=== PATIENT | male | born 1955 ===

== ENCOUNTER 2018-07-06 10:02 | Emergency (ER) | payer BC, OTHER ==
[~2018-07-06] VITALS: Ht 177.8 cm; Wt 83.5 kg
--- NOTE | 2018-07-06 10:45 | ED General ---
General Chief Complaint: Dizziness/Syncope Stated Complaint: DIZZINESS Source of Information: Patient, EMS, Family Exam Limitations: No Limitations History of Present Illness Date Seen by Provider: July 06, 2018 Time Seen by Provider: 10:40 Initial Comments 63-year-old male presents with a five-day history of severe dizziness made worse with body positioning. Patient was evaluated in urgent care in the [facility] and placed on meclizine which she has improved his symptoms slightly. Significant past medical history includes a previous myocardial infarction and placement of stents. The patient has no associated headache, visual change, stiff neck, fever or chill, lateralizing or localizing neurologic complaints, chest pain, shortness of breath, or palpitations. The patient's symptoms were much worse this morning precipitating EMS presentation. In addition to the dizziness the patient was suffering from diaphoresis which has self resolved. The patient received Zofran from the paramedics. Upon presentation to emergency department the patient was complaining of his dizziness but had no other complaints. Allergies and Home Medications Allergies Coded Allergies: No Known Drug Allergies (Unverified , 07/06/18) Patient Home Medication List Home Medication List Reviewed: Yes Review of Systems Review of Systems Constitutional: see HPI; No chills; dizziness EENTM: No hearing loss, No ear pain, No vision loss Respiratory: No cough, No short of breath Cardiovascular: No chest pain; Hx of Intervention; No palpitations Gastrointestinal: No abdominal pain; nausea; No vomiting Genitourinary: No dysuria, No frequency Musculoskeletal: No back pain Skin: see HPI, other (diaphoresis) Psychiatric/Neurological: No Symptoms Reported Hematologic/Lymphatic: No Symptoms Reported Immunological/Allergic: no symptoms reported Past Bdrlakg-Ftwypo-Dgnahg Hx Past Med/Social Hx: Reviewed Nursing Past Med/Soc Hx Physical Exam Vital Signs Vital Signs - First Documented 07/06/18 10:02 Temp 96.9 Pulse 70 Resp 16 B/P (MAP) 158/92 (114) Pulse Ox 95 O2 Delivery Room Air Capillary Refill : Height, Weight, BMI Height: '" Weight: lbs. oz. kg; BMI Method: General Appearance: No Apparent Distress, WD/WN Eyes: Bilateral Eye Other (I do not find a significant nystagmus on examination of the patient.) HEENT: PERRL/EOMI, Normal ENT Inspection, Pharynx Normal Neck: Full Range of Motion, Normal Inspection, Non Tender Respiratory: Chest Non Tender, Lungs Clear, Normal Breath Sounds, No Accessory Muscle Use Cardiovascular: Regular Rate, Rhythm, No Edema, No Gallop Gastrointestinal: Normal Bowel Sounds, No Organomegaly, No Pulsatile Mass Back: Normal Inspection Extremity: Normal Capillary Refill, Normal Inspection, Normal Range of Motion Neurologic/Psychiatric: Alert, Oriented x3, No Motor/Sensory Deficits, Normal Mood/Affect, manager of creative services II-XII Norm as Tested Skin: Normal Color, Warm/Dry; No Diaphoresis Progress/Results/Core Measures Suspected Sepsis SIRS Temperature: Pulse: Respiratory Rate: Laboratory Tests 07/06/18 10:09: White Blood Count 7.2 Blood Pressure / Mean: Laboratory Tests 07/06/18 10:09: Creatinine 1.04, Platelet Count 276, Total Bilirubin 0.9 Results/Orders Lab Results Laboratory Tests Test 07/06/18 10:09 Range/Units White Blood Count 7.2 4.3-11.0 10^3/uL Red Blood Count 7.45 H 4.35-5.85 10^6/uL Hemoglobin 14.6 13.3-17.7 G/DL Hematocrit 48 40-54 % Mean Corpuscular Volume 64 L 80-99 FL Mean Corpuscular Hemoglobin 20 L 25-34 PG Mean Corpuscular Hemoglobin Concent 30 L 32-36 G/DL Red Cell Distribution Width 19.4 H 10.0-14.5 % Platelet Count 276 130-400 10^3/uL Mean Platelet Volume 10.6 H 7.4-10.4 FL Neutrophils (%) (Auto) 53 42-75 % Lymphocytes (%) (Auto) 34 12-44 % Monocytes (%) (Auto) 9 0-12 % Eosinophils (%) (Auto) 4 0-10 % Basophils (%) (Auto) 1 0-10 % Neutrophils # (Auto) 3.8 1.8-7.8 X 10^3 Lymphocytes # (Auto) 2.4 1.0-4.0 X 10^3 Monocytes # (Auto) 0.6 0.0-1.0 X 10^3 Eosinophils # (Auto) 0.3 0.0-0.3 10^3/uL Basophils # (Auto) 0.1 0.0-0.1 10^3/uL Sodium Level 139 135-145 MMOL/L Potassium Level 4.3 3.6-5.0 MMOL/L Chloride Level 103 98-107 MMOL/L Carbon Dioxide Level 19 L 21-32 MMOL/L Anion Gap 17 H 5-14 MMOL/L Blood Urea Nitrogen 11 7-18 MG/DL Creatinine 1.04 0.60-1.30 MG/DL Estimat Glomerular Filtration Rate > 60 BUN/Creatinine Ratio 11 Glucose Level 114 H 70-105 MG/DL Calcium Level 9.0 8.5-10.1 MG/DL Corrected Calcium 8.9 8.5-10.1 MG/DL Total Bilirubin 0.9 0.1-1.0 MG/DL Aspartate Amino Transf (AST/SGOT) 22 5-34 U/L Alanine Aminotransferase (ALT/SGPT) 21 0-55 U/L Alkaline Phosphatase 56 40-136 U/L Troponin T 8 <=15 NG/L Total Protein 7.1 6.4-8.2 GM/DL Albumin 4.1 3.2-4.5 GM/DL My Orders Orders - MARY DEE MD Ct Head Wo (07/06/18 10:37) Ekg Tracing (07/06/18 10:37) Cbc With Automated Diff (07/06/18 10:37) Comprehensive Metabolic Panel (07/06/18 10:37) Troponin T (07/06/18 10:37) Chest 1 View Ap/Pa Only (07/06/18 10:37) Ua Culture If Indicated (07/06/18 10:37) Ondansetron Injection (Zofran Injectio (07/06/18 11:24) Vital Signs/I&O 07/06/18 10:02 Temp 96.9 Pulse 70 Resp 16 B/P (MAP) 158/92 (114) Pulse Ox 95 O2 Delivery Room Air Capillary Refill : Progress Note : Time: 11:21 Progress Note The patient's EKG demonstrated questionable old inferior infarct with Q waves in III and F. Patient was in a sinus rhythm with borderline first-degree heart block. No acute current of injury was noted. CT of the head was unremarkable. Chest x-ray was similarly benign. Physical therapy was kind enough to present to perform an Catherine maneuver for the patient. Prior to the maneuver the patient demonstrated on reexamination a nystagmus to the left. Therefore the Catherine maneuver was performed for the left ear. The patient's dizziness was dramatically improved following the Catherine maneuver. 11:27 I gave the patient a glass of water and in the process of moving his head his dizziness recurred and he was very nauseated and vomited. 4 mg of IV Zofran was given. In addition I gave the patient 5 mg of Valium for symptomatic relief of his dizziness. Departure Impression Primary Impression: BPPV (benign paroxysmal positional vertigo) Qualified Codes: H81.12 - Benign paroxysmal vertigo, left ear Disposition: 01 HOME, SELF-CARE Condition: Improved Departure-Patient Inst. Decision time for Depature: 11:32 Referrals: LAWRENCE RM MD (PCP/Family) Primary Care Physician Patient Instructions: Vertigo (a Type of Dizziness) Add. Discharge Instructions: Perform Catherine maneuvers at home daily. Close follow-up with Dr. Arcos. Valium and Zofran as needed for dizziness and nausea. Return if any problems or questions. Call me with any concerns (Mary Dee- [phone]). All discharge instructions reviewed with patient and/or family. Voiced understanding. Scripts Diazepam (Valium) 5 Mg Tablet 5 MG PO Q6H PRN for DIZZINESS, #20 TAB Prov: MAYR DEE MD 07/06/18 Ondansetron (Ondansetron Odt) 4 Mg Tab.rapdis 4 MG PO Q4H PRN for NAUSEA/VOMITING, #20 TAB Prov: MARY DEE MD 07/06/18 MARY DEE MD July 06, 2018 10:45
[2018-07-06 10:47] LABS: WHITE BLOOD COUNT 7.2 10^3/uL (4.3-11.0)
[2018-07-06 10:48] LABS: BASOPHILS % (AUTO) 1 % (0-10); EOSINOPHILS % (AUTO) 4 % (0-10); HEMATOCRIT 48 % (40-54); HEMOGLOBIN 14.6 G/DL (13.3-17.7); LYMPHOCYTES % (AUTO) 34 % (12-44); MEAN CORPUSCULAR HEMOGLOBIN 20 PG (25-34); MEAN CORPUSCULAR HGB CONC 30 G/DL (32-36); MEAN CORPUSCULAR VOLUME 64 FL (80-99); MEAN PLATELET VOLUME 10.6 FL (7.4-10.4); MONOCYTES % (AUTO) 9 % (0-12); NEUTROPHILS # (AUTO) 3.8 X 10^3 (1.8-7.8); NEUTROPHILS % (AUTO) 53 % (42-75); PLATELET COUNT 276 10^3/uL (130-400); RED CELL DISTRIBUTION WIDTH 19.4 % (10.0-14.5)
[2018-07-06 10:49] LABS: BASOPHILS # (AUTO) 0.1 10^3/uL (0.0-0.1); EOSINOPHILS # (AUTO) 0.3 10^3/uL (0.0-0.3); LYMPHOCYTES # (AUTO) 2.4 X 10^3 (1.0-4.0); MONOCYTES # (AUTO) 0.6 X 10^3 (0.0-1.0)
--- NOTE | 2018-07-06 11:00 | Diagnostic Imaging Report ---
Clinical indication: Patient with dizziness x5 days. Nausea today. No known injury. Exam: Head CT without IV contrast. Comparison: None. Findings: There is no evidence of acute cerebral infarct, intracranial hemorrhage, or gross mass effect. The brain parenchymal volume appears appropriate for patient's age. There is normal vera-white matter distinction. There is no significant midline shift or herniation. There is no evidence of hydrocephalus. The basal cisterns are unremarkable. The skull, extracranial soft tissue, and orbits are unremarkable. There is partially visualized air-fluid levels and mucosal thickening involving both maxillary sinuses. There is moderate mucosal thickening involving ethmoid sinus. 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 Temporal bones show no significant abnormality. Impression: Mild to moderate paranasal sinusitis. Otherwise, unremarkable CT scan of the brain. Dictated by: Dictated on workstation # [id number]
--- NOTE | 2018-07-06 11:11 | Diagnostic Imaging Report ---
INDICATION: Dizziness. TIME OF EXAM: 10:37 AM No prior studies are available for comparison. FINDINGS: The heart size is normal. The pulmonary vascularity is unremarkable. The lungs are clear. No infiltrate, effusion or pneumothorax is detected. IMPRESSION: No acute cardiopulmonary process is detected. Dictated by: Dictated on workstation # [id number]
[2018-07-06 11:21] LABS: BUN/CREATININE RATIO 11; CARBON DIOXIDE 19 MMOL/L (21-32); CHLORIDE 103 MMOL/L (98-107); CREATININE SERUM 1.04 MG/DL (0.60-1.30); GFR ESTIMATED > 60; POTASSIUM 4.3 MMOL/L (3.6-5.0); SODIUM 139 MMOL/L (135-145)
[2018-07-06 11:22] LABS: ALANINE AMINOTRANSFERASE 21 U/L (0-55); ALBUMIN 4.1 GM/DL (3.2-4.5); ALKALINE PHOSPHATASE 56 U/L (40-136); BILIRUBIN,TOTAL 0.9 MG/DL (0.1-1.0); GLUCOSE 114 MG/DL (70-105); TOTAL PROTEIN 7.1 GM/DL (6.4-8.2)
[2018-07-06] MEDS ORDERED: ONDANSETRON 4 MG/2 ML (SDV) Z0FRAN ONE (11:24)
[2018-07-06] MEDS ORDERED: DIAZEPAM 5 MG (VALIUM) TABLET PO ONE (11:30)
[2018-07-06] MEDS ORDERED: ONDANSETRON 4 MG/2 ML (SDV) Z0FRAN IVP ONE (11:30)
[2018-07-06] MEDS ORDERED: DIAZ5TAB PO (11:42)
[2018-07-06] MEDS ORDERED: ONDA4TAB11 PO (11:42)
[2018-07-06 11:59] VITALS: BP 121/94
== END 2018-07-06 11:59 | disposition home or self-care (01) ==
LOC: ER FS 10:07
DX: H81.12 Benign paroxysmal vertigo, left ear (principal); R42 Dizziness and giddiness; I25.2 Old myocardial infarction
CPT/HCPCS: 36415; 70450; 71045; 80053; 84484; 85025; 93005; 96374

== ENCOUNTER → 2019-12-29 | Outpatient (CLI) | payer BC, MEDICARE ==
[~2019-12-29] VITALS: Ht 172 cm; Wt 82.0 kg
[~2019-12-29] MED LIST: CATHETER FLUSH 10 ML SYR IV PRN; DIAZ5TAB PO; ONDA4TAB11 PO; REGADENOSON 0.4 MG/5 ML SYR (LEXISCAN) IV ONE
[2019-12-29 09:13] VITALS: BP 118/77
--- NOTE | 2020-01-01 20:45 | STRESS TEST ---
DATE OF SERVICE: RESTING AND POST REGADENOSON TECHNETIUM-99M TETROFOSMIN SPECT CT IMAGING CLINICAL DIAGNOSES: Coronary artery disease, abnormal electrocardiogram. Baseline images were carried out after injection of 10.6 mCi technetium-99m Tetrofosmin. This was followed by 0.4 mg regadenoson and 31.7 mCi of technetium-99m Tetrofosmin for stress imaging. The electrocardiogram showed sinus rhythm at baseline and did not change significantly with regadenoson infusion. The patient noted some shortness of breath, which resolved in a few minutes. Review of images at rest and following stress does not indicate any significant perfusion defects consistent with significant myocardial ischemia or infarction. Gated images show normal global left ventricular systolic function with normal regional wall motion. Left ventricular ejection fraction is calculated to be 80%. TID is absent (0.98). Left ventricular end diastolic volume is 49 mL. CONCLUSIONS: 1. No evidence of significant myocardial ischemia or infarction on this study. 2. No regional wall motion abnormalities seen. 3. Left ventricular ejection fraction is calculated to be 80%. Job ID: [id number] DocumentID: [id number] Dictated Date: 01/01/2020 13:52:15 [employer] Date: 01/01/2020 16:40:12 Dictated By: AXEL LARIOS MD, MA, FACP, FACC,
== END ==
LOC: CARD 08:10
PROVIDERS: ATTEND Internal Medicine Cardiovascular Disease
DX: I25.10 Atherosclerotic heart disease of native coronary artery without angina pectoris (principal); R94.31 Abnormal electrocardiogram [ECG] [EKG]; I10 Essential (primary) hypertension; E78.49 Other hyperlipidemia; Z72.0 Tobacco use; Z86.79 Personal history of other diseases of the circulatory system
CPT/HCPCS: 78452; 93017; A9502

== ENCOUNTER → 2020-03-07 | Outpatient (CLI) | payer MEDICARE, OTHER ==
[~2020-03-07] MED LIST changes: -CATHETER FLUSH 10 ML SYR IV PRN; -REGADENOSON 0.4 MG/5 ML SYR (LEXISCAN) IV ONE
== END ==
LOC: CARD 10:00
PROVIDERS: ATTEND Internal Medicine Cardiovascular Disease
DX: I25.10 Atherosclerotic heart disease of native coronary artery without angina pectoris (principal); I10 Essential (primary) hypertension; I25.2 Old myocardial infarction; E78.5 Hyperlipidemia, unspecified; R94.31 Abnormal electrocardiogram [ECG] [EKG]; Z72.0 Tobacco use
CPT/HCPCS: 93306